=== PATIENT | female | born 1935 | race Caucasian/White ===

== ENCOUNTER 2016-10-07 09:35 | Inpatient (IN) | payer OTHER, MEDICARE ==
[~2016-10-07] VITALS: Ht 149.9 cm; Wt 77.1 kg
[~2016-10-07 09:35] MED LIST: CALTTAB PO; HYDR12.57 PO
[2016-10-20] MEDS ORDERED: PLAV75TA29 PO (09:41)
[2016-10-20] MEDS ORDERED: FERR325T PO (09:45)
[2016-10-20] MEDS ORDERED: MULTTAB67 PO (09:45)
[2016-10-20] MEDS ORDERED: VITA10002 PO (09:45)
[2016-10-21] MEDS ORDERED: LACTATED RINGER'S 1000 ML INJ 1,000 ML ONE (09:11)
[2016-10-21] MEDS ORDERED: ceFAZolin 2 GM PREMIX 50 ML IV SCH (09:15)
[2016-10-21] MEDS ORDERED: VANCOMYCIN 1000 MG/NS 250 ML (for <70 kg) IV SCH ×2 (09:15)
[2016-10-21] MEDS ORDERED: LACTATED RINGER'S 1000 ML IV SCH (09:30)
[2016-10-21] MEDS ORDERED: INSULIN HUMAN REGULAR 1,000 UNITS/10 ML VIAL SQ PRN (09:30)
[2016-10-21] MEDS ORDERED: SODIUM CHLORID 0.9% 500 ML IV SCH (09:30)
[2016-10-21] MEDS ORDERED: POVIDONE IODINE 5% (ANTISEPSIS KIT) 4 APPLICATIONS EACH NARE SCH (09:30)
[2016-10-21] MEDS ORDERED: CHLORHEXIDINE GLUCONATE 2 % 1 PACK (2 CLOTHS) TOP SCH (09:30)
[2016-10-21] MEDS ORDERED: METOPROLOL TARTRATE 25 MG TAB PO PRN (09:30)
[2016-10-21] MEDS ORDERED: ASPI1TAB69 PO (09:47)
[2016-10-21] MEDS ORDERED: IRON18TA2 PO (09:47)
[2016-10-21 09:50] VITALS: BP 157/56; PULSE 75; RESP 18; TEMP 98.4; O2SAT 97
[2016-10-21] MEDS ORDERED: SODIUM CHLOR 0.9% 250 ML INJ 250 ML ONE (10:04)
[2016-10-21] MEDS: CHLORHEXIDINE GLUCONATE 4% SOLN 120 ML BTL TOP SCH (10:19)
[2016-10-21] MEDS ORDERED: GENTAMICIN SULFATE 80 MG/2 ML VIAL ONE (11:00)
[2016-10-21] MEDS ORDERED: MIDAZOLAM HCL 2 MG/2 ML VIAL ONE (11:07)
[2016-10-21] MEDS ORDERED: FAMOTIDINE 20 MG/2 ML VIAL ONE (11:07)
[2016-10-21] MEDS ORDERED: fentaNYL CITRATE 250 MCG/5 ML AMP ONE (11:20)
[2016-10-21] MEDS ORDERED: ONDANSETRON HCL 4 MG/2 ML VIAL IV PUSH ONE (12:00)
[2016-10-21] MEDS ORDERED: ePHEDrine/NS 25 MG/5 ML SYR IV ONE (12:00)
[2016-10-21] MEDS ORDERED: PROPOFOL 200 MG/20 ML AMP IV ONE (12:00)
[2016-10-21] MEDS ORDERED: NEOSTIGMINE 3 MG/3 ML SYR IV ONE (12:00)
[2016-10-21] MEDS ORDERED: BEDSIDE COMMODE1 MI1 (13:15)
[2016-10-21] MEDS ORDERED: WALKER WHEELS/F1 MIS (13:15)
[2016-10-21] MEDS ORDERED: Post-op Orders (for Pharmacy) MISC XX ONE (13:15)
[2016-10-21] MEDS ORDERED: ZOLPIDEM TARTRATE 5 MG TAB PO PRN (13:15)
[2016-10-21] MEDS ORDERED: MORPHINE SULFATE 4 MG/ML INJ IM PRN (13:15)
[2016-10-21] MEDS ORDERED: ONDANSETRON HCL 4 MG/2 ML VIAL IVP PRN (13:15)
[2016-10-21] MEDS ORDERED: ACETAMINOPHEN/HYDROcodone 325 MG/5 MG TAB PO PRN (13:15)
[2016-10-21] MEDS ORDERED: ALUMINUM/MAGNESIUM/SIMETH 30 ML CUP PO PRN (13:15)
[2016-10-21] MEDS ORDERED: SODIUM CHLORIDE 0.9% FLUSH 5 ML FLUSH IVF PRN (13:15)
[2016-10-21] MEDS ORDERED: DO NOT ADM ANY ANTICOAGULANT DRUGS XX PRN (13:30)
[2016-10-21] MEDS: LACTATED RINGER'S 1000 ML INJ 1,000 ML IV SCH (14:00)
[2016-10-21] MEDS: ACETAMINOPHEN/HYDROcodone 325 MG/5 MG TAB PO PRN (14:42)
--- NOTE | 2016-10-21 15:20 | PD.CONS ---
[facility] By Dr. Pham Reason for Consult medical management Primary Care Physician Javed Baum MD Diagnoses: History of Present Illness This is an 81-year-old female past medical history hypertension, chronic kidney disease stage III, and aortic stenosis who presented with elective left hip arthroplasty secondary to uncontrolled pain failing conservative management. [facility] consulted for medical management. Patient was seen in the PACU with no complaints. Review of Systems Constitutional: DENIES: Diaphoretic episodes, Fatigue, Fever, Weight gain, Weight loss, Chills, Dizziness, Change in appetite, Night Sweats Endocrine: DENIES: Abnorml menstrual pattern, Heat/cold intolerance, Polydipsia , Polyuria, Polyphagia Eyes: DENIES: Blurred vision, Diplopia, Eye inflammation, Eye pain, Vision loss , Photosensitivity, Double Vision Ears, nose, mouth, throat: DENIES: Tinnitus, Hearing loss, Vertigo, Nasal discharge, Oral lesions, Throat pain, Hoarseness, Ear Pain, Running Nose, Epistaxis, Sinus Pain, Toothache, Odynophagia Respiratory: DENIES: Apneas, Cough, Snoring, Wheezing, Hemoptysis, Sputum production, Shortness of breath Cardiovascular: DENIES: Chest pain, Palpitations, Syncope, Dyspnea on Exertion , PND, Lower Extremity Edema, Orthopnea, Claudication Gastrointestinal: DENIES: Abdominal pain, Black stools, Bloody stools, Constipation, Diarrhea, Nausea, Vomiting, Difficulty Swallowing, Anorexia Genitourinary: DENIES: Abnormal vaginal bleeding, Dysmenorrhea, Dyspareunia, Sexual dysfunction, Urinary frequency, Urinary incontinence, Urgency, Hematuria , Dysuria, Nocturia, Vaginal discharge Musculoskeletal: DENIES: Joint pain, Muscle aches, Stiffness, Joint Swelling, Back pain, Neck pain Integumentary: DENIES: Abnormal pigmentation, Pruritus, Rash, Nail changes, Breast masses, Breast skin changes, Nipple discharge Hematologic/lymphatic: DENIES: Bruising, Lymphadenopathy Immunologic/allergic: DENIES: Eczema, Urticaria Neurologic: DENIES: Abnormal gait, Headache, Localized weakness, Paresthesias, Seizures, Speech Problems, Tremor, Poor Balance Psychiatric: DENIES: Anxiety, Confusion, Mood changes, Depression, Hallucinations, Agitation, Suicidal Ideation, Homicidal Ideation, Delusions Past Family Social History Allergies: Coded Allergies: No Known Allergies (Verified , 10/20/16) Past Medical History Hypertension Aortic stenosis Osteoarthritis of multiple joints Chronic kidney disease stage III Past Surgical History Ballooning of the aortic valve, left hip total arthroplasty Reported Medications Reported Meds & Active Scripts Active Reported Iron (Ferrous Fumarate) 18 Mg Tab 54 Mg PO DAILY Aspirin 81 Mg Tabdr 81 Mg PO DAILY Multiple Vitamin 1 Tab 1 Tab PO DAILY Vitamin B-12 (Cyanocobalamin) 1,000 Mcg Tab 5,000 Mcg PO EVERY OTHER DAY Vitamin B-12 (Cyanocobalamin) 1,000 Mcg Tab 1,000 Mcg PO EVERY OTHER DAY Plavix (Clopidogrel Bisulfate) 75 Mg Tab 75 Mg PO DAILY Hydrochlorothiazide 12.5 Mg Cap 12.5 Mg PO DAILY Caltrate 600+D (Calcium Carbonate-Cholecalciferol) 600-800 Mg-Unit Tab 1 Tab PO DAILY Active Ordered Medications Current Medications Lactated Ringer's (Lr 1000 ml Inj) 1,000 ml @ As Directed STK-MED ONCE .ROUTE Last administered on 10/21/16 09:40; Start 10/21/16 at 09:11; Stop 10/21/16 at 09:12; Status DC Chlorhexidine Gluconate 1 applic 1 applic ONCE TOP Last administered on 10:19; Start 10/21/16 at 09:15; Stop 10/24/16 at 09:14 Cefazolin Sodium/ Dextrose 50 ml @ 100 mls/hr LOCKER ATTENDANT IV Last administered on 10/21/16 11:45; Start 10/21/16 at 09:15; Stop 10/21/16 at 13:45; Status DC Vancomycin HCl 1000 mg/Sodium Chloride 250 ml @ 250 mls/hr LOCKER ATTENDANT IV Last administered on 10/21/16 10:19; Start 10/21/16 at 09:15; Stop 10/21/16 at 13:46 ; Status DC Lactated Ringer's 1,000 ml @ 30 mls/hr Q24H IV ; Start 10/21/16 at 09:30; Stop 10/21/16 at 13:46; Status DC Sodium Chloride (NS 500 ml Inj) 500 ml @ 30 mls/hr [id number] IV ; Start 10/21/16 at 09:30; Stop 10/21/16 at 13:46; Status DC Insulin Human Regular (NovoLIN R INJ) See Protocol Table ... UNSCH X1 PRN SQ SEE PROTOCOL; Start 10/21/16 at 09:30; Stop 10/21/16 at 13:46; Status DC Metoprolol Tartrate (Lopressor) 25 mg UNSCH X1 PRN PO SEE LABEL COMMENTS; Start 10/21/16 at 09:30; Stop 10/21/16 at 13:46; Status DC Povidone Iodine (Betadine 5% Antisepsis Kit) 2 applic LOCKER ATTENDANT EACH NARE Last administered on 10/21/16 10:19; Start 10/21/16 at 09:30; Stop 10/21/16 at 13:46 ; Status DC Chlorhexidine Gluconate 3 pack 3 pack LOCKER ATTENDANT TOP ; Start 10/21/16 at 09:30; Stop 10/21/16 at 13:46; Status DC Sodium Chloride (NS 250 ml Inj) 250 ml @ As Directed STK-MED ONCE .ROUTE ; Start 10/21/16 at 10:04; Stop 10/21/16 at 10:05; Status DC Gentamicin Sulfate (Gentamicin Inj) 240 mg STK-MED ONCE .ROUTE Last administered on 10/21/16 12:10; Start 10/21/16 at 11:00; Stop 10/21/16 at 11:01 ; Status DC Midazolam HCl (Versed Inj) 2 mg STK-MED ONCE .ROUTE Last administered on 11:09; Start 10/21/16 at 11:07; Stop 10/21/16 at 11:08; Status DC Famotidine (Pepcid Inj) 20 mg STK-MED ONCE .ROUTE Last administered on 11:06; Start 10/21/16 at 11:07; Stop 10/21/16 at 11:08; Status DC Fentanyl Citrate (fentaNYL INJ) 250 mcg STK-MED ONCE .ROUTE ; Start 10/21/16 at 11:20; Stop 10/21/16 at 11:21; Status DC Hydrochlorothiazide (Microzide) 12.5 mg DAILY PO ; Start 10/22/16 at 09:00 Patient Own Medication PT OWN MED: FERR... DAILY PO ; Start 10/22/16 at 09:00; Status Future Hold Lactated Ringer's (Lr 1000 ml Inj) 1,000 ml @ 80 mls/hr [id number] IV Last administered on 3/23/17at 14:00; Start 10/21/16 at 13:07 IV Flush (NS Flush) 2 ml UNSCH PRN IVF FLUSH AFTER USING IV ACCESS; Start 10/21 at 13:15 IV Flush 2 ml 2 ml BID IVF ; Start 10/21/16 at 21:00 Cefazolin Sodium/ Sodium Chloride (Ancef Inj/NS Inj) 100 ml @ 200 mls/hr Q6H IV ; Start 10/21/16 at 16:00; Stop 10/22/16 at 04:29 Miscellaneous Information (Post-op Orders (for Pharmacy)) STAT ONCE XX ; Start 10/21/16 at 13:15; Stop 10/21/16 at 13:23; Status DC Warfarin Sodium (Coumadin) Follow Sliding Scale... DAILY@1600 PO ; Start at 16:00 Patient Medication Teaching (Coumadin Booklet) 1 ONCE ONCE XX ; Start 10/21/16 at 16:00; Stop 10/21/16 at 16:01 Morphine Sulfate (Morphine Inj) 3 mg Q3H PRN IM Pain >7 when off MANAGER FINANCIAL; Start at 13:15 Acetaminophen/ Hydrocodone Bitart ([place] 5-325 Mg) 1 tab Q4H PRN PO PAIN LESS THAN 5 ON SCALE Last administered on 10/21/16t 14:42; Start 10/21/16 at 13:15 Acetaminophen/ Hydrocodone Bitart ([place] 5-325 Mg) 2 tab Q4H PRN PO PAIN SCALE 5 TO 10; Start 10/21/16 at 13:15 Ondansetron HCl (Zofran Inj) 4 mg Q6H PRN IVP NAUSEA OR VOMITING; Start at 13:15 Docusate Sodium (Colace) 100 mg BID PO ; Start 10/22/16 at 21:00 Al Hydrox/Mg Hydrox/Simethicone (Mag-Al Plus Susp Liq) 30 ml Q6H PRN PO INDIGESTION; Start 10/21/16 at 13:15 Zolpidem Tartrate (Ambien) 5 mg HS PRN PO SLEEP; Start 10/21/16 at 13:15 Miscellaneous Information ALL NURSING DEPARTME... UNSCH PRN XX SEE LABEL COMMENTS; Start 10/21/16 at 13:30; Stop 10/22/16 at 13:29 Family History Noncontributory Social History Patient lives at home. Deny tobacco or illicit drug use. Drinks alcohol occasionally about every 3 months. Physical Exam Vital Signs Vital Signs Date Time Temp Pulse Resp B/P Pulse Ox O2 Delivery O2 Flow Rate FiO2 10/21/16 13:25 97.8 59 18 150/43 100 Nasal Cannula 3 10/21/16 09:50 98.4 75 18 157/56 97 Physical Exam GENERAL: This is a well-nourished, well-developed patient, in no apparent distress. SKIN: No rashes, ecchymoses or lesions. Cool and dry. HEAD: Atraumatic. Normocephalic. No temporal or scalp tenderness. EYES: Pupils equal round and reactive. Extraocular motions intact. No scleral icterus. No injection or drainage. ENT: Nose without bleeding, purulent drainage or septal hematoma. Throat without erythema, tonsillar hypertrophy or exudate. Uvula midline. Airway patent. NECK: Trachea midline. No JVD or lymphadenopathy. Supple, nontender, no meningeal signs. CARDIOVASCULAR: Regular rate and rhythm without murmurs, gallops, or rubs. RESPIRATORY: Clear to auscultation. Breath sounds equal bilaterally. No wheezes , rales, or rhonchi. GASTROINTESTINAL: Abdomen soft, non-tender, nondistended. No hepato-splenomegaly , or palpable masses. No guarding. MUSCULOSKELETAL: Right hip limited range of motion. Negative Homans sign bilaterally. NEUROLOGICAL: Awake and alert. Cranial nerves II through XII intact. Motor and sensory grossly within normal limits. Five out of 5 muscle strength in all muscle groups. Normal speech. Laboratory Laboratory Tests Test 10/21/16 09:40 Blood Type O NEGATIVE Antibody Screen NEGATIVE Crossmatch Leukocyte-Reduced Red Blood Cells Blood Bank Comment Assessment and Plan Assessment and Plan 81-year-old with Severe osteoarthritis of the right hip -Failed conservative management. -s/p right total hip arthroplasty on 10/21/16. -Being managed by orthopedics. Hypertension/Aortic stenosis/chronic kidney disease stage III -Home medication already resumed. -Avoid nephrotoxins. DVT prophylaxis -On Coumadin per primary team. Code Status full Discussed Condition With patient and PACU nurse Kala Murrieta MD Oct 21, 2016 15:20
[2016-10-21 15:30] VITALS: BP 143/60; PULSE 50; RESP 16; TEMP 95.9; O2SAT 96
--- NOTE | 2016-10-21 16:13 | RADRPT ---
EXAM DATE/TIME: 10/21/2016 13:25 [place] COMPARISON: No previous studies available for comparison. INDICATIONS : Post right hip arthroplasty MEDICAL HISTORY : Arthritis. SURGICAL HISTORY : Total knee replacement, left. ENCOUNTER: Initial ACUITY: 1 day PAIN SCORE: Non-responsive. LOCATION: Right hip FINDINGS: The patient is status post right hip arthroplasty with prosthesis in good position. Old left hip art hroplasty is also noted. CONCLUSION: Status post right hip arthroplasty with prosthesis in good position. Tom Ocampo MD on October 21, 2016 at 16:10 Board Certified Radiologist. This report was verified electronically.
[2016-10-21] MEDS: SODIUM CHLORIDE 0.9% FLUSH 5 ML FLUSH IVF SCH (20:10)
[2016-10-21 20:50] VITALS: BP 151/54; PULSE 69; RESP 16; TEMP 96; O2SAT 98
[2016-10-22] VITALS (8 sets, daily range): BP systolic 131–161; BP diastolic 42–67; PULSE 83–89; RESP 16–17; TEMP 98–99.9; O2SAT 95–98
[2016-10-22] MEDS: LACTATED RINGER'S 1000 ML INJ 1,000 ML IV SCH ×2 (04:44→12:46)
[2016-10-22 06:02] LABS: HEMATOCRIT 23.9 % (35.0-46.0); REVIEW FLAG FINAL
[2016-10-22 06:10] LABS: INTERNATIONAL NORMALIZED RATIO 1.9 RATIO; PROTHROMBIN TIME - PATIENT 21.2 SEC (9.8-11.6)
--- NOTE | 2016-10-22 07:02 | PD.ORT.PN ---
Subjective Subjective Remarks pt doing well, has no pain, has not needed any pain meds thus far Objective Vitals Vital Signs Date Time Temp Pulse Resp B/P Pulse Ox O2 Delivery O2 Flow Rate FiO2 10/22/16 04:45 98.2 83 16 143/53 97 10/22/16 00:50 98.0 85 16 146/49 97 10/21/16 21:00 98 Room Air 10/21/16 20:50 96.0 69 16 151/54 98 10/21/16 15:30 95.9 50 16 143/60 96 10/21/16 14:55 96.9 52 16 142/55 95 Room Air 10/21/16 14:45 51 16 144/51 100 Nasal Cannula 2 10/21/16 14:30 49 15 143/50 99 Nasal Cannula 2 10/21/16 14:15 48 15 150/51 98 Nasal Cannula 2 10/21/16 14:00 46 15 147/50 97 Nasal Cannula 2 10/21/16 13:45 47 15 145/52 96 Nasal Cannula 2 10/21/16 13:30 50 15 148/45 96 Nasal Cannula 2 10/21/16 13:25 97.8 59 18 150/43 100 Nasal Cannula 3 10/21/16 09:50 98.4 75 18 157/56 97 I/O 10/21/16 10/21/16 10/21/16 10/22/16 10/22/16 10/22/16 07:00 15:00 23:00 07:00 15:00 23:00 Intake Total 650 ml 826 ml 120 ml Output Total 100 ml Balance 550 ml 826 ml 120 ml Intake Oral 120 ml IV Total 100 ml 826 ml Other 550 ml Output Estimated Blood Loss 100 ml # Voids 0 1 Result Diagram: 10/22/16 0510 Other Results Laboratory Tests Test 10/22/16 05:10 Prothrombin Time 21.2 SEC (9.8-11.6) Prothromb Time International 1.9 RATIO Ratio Objective Remarks also seen by Dr. Yan Lopez right hip dressing dry and intact no calf tenderness +NVI Assessment & Plan Assessment and Plan POD # 1 s/p R MICHELET low dose coumadin for DVT prop- hold today per protocol since INR 1.9 PT-WBAT hgb 8.3 today, recheck CBC tomorrow, on iron anticipate d/c to [facility] Tuesday, 3007 filled out coumadin 1 mg daily upon discharge Akua Stanton Oct 22, 2016 07:02
[2016-10-22] MEDS: HYDROCHLOROTHIAZIDE 12.5 MG CAP PO SCH (09:00)
[2016-10-22] MEDS ORDERED: FERROUS FUMARATE PO SCH (09:00)
[2016-10-22] MEDS: CHLORHEXIDINE GLUCONATE 4% SOLN 120 ML BTL TOP SCH (09:15)
[2016-10-22] MEDS: ACETAMINOPHEN/HYDROcodone 325 MG/5 MG TAB PO PRN ×2 (09:36→12:48)
[2016-10-22] MEDS: SODIUM CHLORIDE 0.9% FLUSH 5 ML FLUSH IVF SCH ×2 (09:37→20:24)
[2016-10-22] MEDS ORDERED: WARFARIN SOD 5 MG TAB PO ONE (13:00)
--- NOTE | 2016-10-22 15:47 | HHI.PR ---
Subjective Remarks pain - controlled looking forward to going to rehab and ore therapy voiding spontaneously history of HTN.- ff by Dr. Dickens on Plavix- held prior to surgery and while on coumadin- to be resume after coumadin course Objective Vitals Vital Signs Date Time Temp Pulse Resp B/P Pulse Ox O2 Delivery O2 Flow Rate FiO2 10/22/16 12:14 98.9 89 16 139/67 96 10/22/16 09:43 97 21 10/22/16 08:00 99.5 86 17 147/57 97 10/22/16 04:45 98.2 83 16 143/53 97 10/22/16 00:50 98.0 85 16 146/49 97 10/21/16 21:00 98 Room Air 10/21/16 20:50 96.0 69 16 151/54 98 I/O 10/21/16 10/21/16 10/21/16 10/22/16 10/22/16 10/22/16 07:00 15:00 23:00 07:00 15:00 23:00 Intake Total 650 ml 826 ml 798 ml 154 ml Output Total 100 ml Balance 550 ml 826 ml 798 ml 154 ml Intake Oral 120 ml IV Total 100 ml 826 ml 678 ml 154 ml Other 550 ml Output Estimated Blood Loss 100 ml # Voids 0 1 1 Result Diagram: 10/22/16 0510 Imaging Last Impressions Hip and Pelvis X-Ray 10/21/16 0000 Signed Impressions: Service Date/Time: September 13:25 - CONCLUSION: Status post right hip arthroplasty with prosthesis in good position. Tom Ocampo MD Objective Remarks awake and alert lungs clear regular rhythm, soft / systolic murmur left sternal border abdomen soft, good bowel sounds right hip- post op dressing in place no calf tenderness, good peripheral pulses Procedures 10/20- right total hip arthroplasty A/P Assessment and Plan 81-year-old with Severe osteoarthritis of the right hip -s/p right total hip arthroplasty on 10/21/16. -Being managed by orthopedics. Hypertension/Aortic stenosis/chronic kidney disease stage III -ff up with Dr. Dickens as OP for - Plavix on hold while on coumadin -continue on her HCTZ 12.5 mg po daily DVT prophylaxis -On Coumadin per primary team. SNF this weekend per primary team PCP= Ag Hernandez MD Oct 22, 2016 15:47
[2016-10-22] MEDS ORDERED: WARFARIN SOD 5 MG TAB PO SCH (16:00)
[2016-10-22] MEDS: DOCUSATE SODIUM 100 MG CAP PO SCH (20:24)
[2016-10-23] MEDS: LACTATED RINGER'S 1000 ML INJ 1,000 ML IV SCH ×2 (02:37→15:07)
[2016-10-23 04:59] LABS: MEAN CELL VOLUME 94.9 FL (80.0-100.0); MEAN CORPUSCULAR HEMOGLOBIN 33.7 PG (27.0-34.0); MEAN CORPUSCULAR HGB CONC 35.5 % (32.0-36.0); PLATELET COUNT 153 TH/MM3 (150-450); RED BLOOD COUNT 2.07 MIL/MM3 (4.00-5.30); RED CELL DISTRIBUTION WIDTH 13.6 % (11.6-17.2); WHITE BLOOD COUNT 9.9 TH/MM3 (4.0-11.0)
[2016-10-23 05:08] LABS: INTERNATIONAL NORMALIZED RATIO 1.8 RATIO; PROTHROMBIN TIME - PATIENT 20.8 SEC (9.8-11.6); REVIEW FLAG FINAL
[2016-10-23 05:12] LABS: HEMATOCRIT 19.7 % (35.0-46.0)
--- NOTE | 2016-10-23 07:14 | PD.ORT.PN ---
Subjective Subjective Remarks POD 2 s/p right MICHELET doing well. out of bed with assistance and walking to bathroom and back. pain controlled Objective Vitals Vital Signs Date Time Temp Pulse Resp B/P Pulse Ox O2 Delivery O2 Flow Rate FiO2 10/22/16 23:45 99.7 89 17 132/60 95 10/22/16 20:40 99.9 88 17 161/49 98 10/22/16 20:00 98 Room Air 10/22/16 16:00 98.7 89 17 131/42 96 10/22/16 12:14 98.9 89 16 139/67 96 10/22/16 09:43 97 21 10/22/16 08:00 99.5 86 17 147/57 97 I/O 10/22/16 10/22/16 10/22/16 10/23/16 10/23/16 10/23/16 07:00 15:00 23:00 07:00 15:00 23:00 Intake Total 798 ml 874 ml 240 ml 120 ml Balance 798 ml 874 ml 240 ml 120 ml Intake Oral 120 ml 720 ml 240 ml 120 ml IV Total 678 ml 154 ml # Voids 1 3 2 2 # Bowel Movements 0 0 Result Diagram: 10/23/16 0414 Other Results Laboratory Tests Test 10/23/16 04:14 Prothrombin Time 20.8 SEC (9.8-11.6) Prothromb Time International 1.8 RATIO Ratio Objective Remarks right hip dressing dry and intact no calf tenderness +NVI Assessment & Plan Assessment and Plan POD # 2 s/p R MICHELET low dose coumadin for DVT prophylaxis PT-WBAT anticipate d/c to [facility] 3007 filled out coumadin 1 mg daily upon discharge f/u with Dr Heredia in 2 weeks Leo Kaiser Oct 23, 2016 07:14
[2016-10-23 08:00] VITALS: BP 134/46; PULSE 82; RESP 18; TEMP 98.9; O2SAT 95
[2016-10-23] MEDS: CHLORHEXIDINE GLUCONATE 4% SOLN 120 ML BTL TOP SCH (09:15)
[2016-10-23] MEDS: HYDROCHLOROTHIAZIDE 12.5 MG CAP PO SCH (09:16)
[2016-10-23] MEDS: DOCUSATE SODIUM 100 MG CAP PO SCH (09:16)
[2016-10-23] MEDS: ACETAMINOPHEN/HYDROcodone 325 MG/5 MG TAB PO PRN ×2 (09:17→18:10)
[2016-10-23] MEDS: SODIUM CHLORIDE 0.9% FLUSH 5 ML FLUSH IVF SCH (09:18)
--- NOTE | 2016-10-23 09:50 | HHI.PR ---
Subjective Remarks f/u; post-op care resting comfortably with no distress. pain is controlled. no chest pain, sob or dizziness. d/w the RN. Objective Vitals Vital Signs Date Time Temp Pulse Resp B/P Pulse Ox O2 Delivery O2 Flow Rate FiO2 10/23/16 08:00 98.9 82 18 134/46 95 10/22/16 23:45 99.7 89 17 132/60 95 10/22/16 20:40 99.9 88 17 161/49 98 10/22/16 20:00 98 Room Air 10/22/16 16:00 98.7 89 17 131/42 96 10/22/16 12:14 98.9 89 16 139/67 96 I/O 10/22/16 10/22/16 10/22/16 10/23/16 10/23/16 10/23/16 07:00 15:00 23:00 07:00 15:00 23:00 Intake Total 798 ml 874 ml 240 ml 120 ml Balance 798 ml 874 ml 240 ml 120 ml Intake Oral 120 ml 720 ml 240 ml 120 ml IV Total 678 ml 154 ml # Voids 1 3 2 2 # Bowel Movements 0 0 Result Diagram: 10/23/16 0414 Imaging Last Impressions Hip and Pelvis X-Ray 10/21/16 0000 Signed Impressions: Service Date/Time: September 13:25 - CONCLUSION: Status post right hip arthroplasty with prosthesis in good position. Tom Ocampo MD Objective Remarks GENERAL: This is a well-nourished, well-developed patient, in no apparent distress. CARDIOVASCULAR: Regular rate and regular rhythm without murmurs, gallops, or rubs. RESPIRATORY: Clear to auscultation. Breath sounds equal bilaterally. No wheezes , rales, or rhonchi. GASTROINTESTINAL: Abdomen soft, non-tender, nondistended. Normal, active bowel sounds MUSCULOSKELETAL: Extremities without clubbing, cyanosis, or edema. NEURO: Alert & Oriented x4 to person, place, time, situation. Moves all ext x4 Procedures 10/20- right total hip arthroplasty Medications and IVs Current Medications Lactated Ringer's (Lr 1000 ml Inj) 1,000 ml @ As Directed STK-MED ONCE .ROUTE Last administered on 10/21/16t 09:40; Start 10/21/16 at 09:11; Stop 10/21/16 at 09:12; Status DC Chlorhexidine Gluconate 1 applic 1 applic ONCE TOP Last administered on 10:19; Start 10/21/16 at 09:15; Stop 10/24/16 at 09:14 Cefazolin Sodium/ Dextrose 50 ml @ 100 mls/hr CLINICAL REHAB LIAISON IV Last administered on 10/21/16 11:45; Start 10/21/16 at 09:15; Stop 10/21/16 at 13:45; Status DC Vancomycin HCl 1000 mg/Sodium Chloride 250 ml @ 250 mls/hr CLINICAL REHAB LIAISON IV Last administered on 10/21/16 10:19; Start 10/21/16 at 09:15; Stop 10/21/16 at 13:46 ; Status DC Lactated Ringer's 1,000 ml @ 30 mls/hr Q24H IV ; Start 10/21/16 at 09:30; Stop 10/21/16 at 13:46; Status DC Sodium Chloride (NS 500 ml Inj) 500 ml @ 30 mls/hr [id number] IV ; Start 10/21/16 at 09:30; Stop 10/21/16 at 13:46; Status DC Insulin Human Regular (NovoLIN R INJ) See Protocol Table ... UNSCH X1 PRN SQ SEE PROTOCOL; Start 10/21/16 at 09:30; Stop 10/21/16 at 13:46; Status DC Metoprolol Tartrate (Lopressor) 25 mg UNSCH X1 PRN PO SEE LABEL COMMENTS; Start 10/21/16 at 09:30; Stop 10/21/16 at 13:46; Status DC Povidone Iodine (Betadine 5% Antisepsis Kit) 2 applic CLINICAL REHAB LIAISON EACH NARE Last administered on 10/21/16 10:19; Start 10/21/16 at 09:30; Stop 10/21/16 at 13:46 ; Status DC Chlorhexidine Gluconate 3 pack 3 pack CLINICAL REHAB LIAISON TOP ; Start 10/21/16 at 09:30; Stop 10/21/16 at 13:46; Status DC Sodium Chloride (NS 250 ml Inj) 250 ml @ As Directed STK-MED ONCE .ROUTE ; Start 10/21/16 at 10:04; Stop 10/21/16 at 10:05; Status DC Gentamicin Sulfate (Gentamicin Inj) 240 mg STK-MED ONCE .ROUTE Last administered on 10/21/16 12:10; Start 10/21/16 at 11:00; Stop 10/21/16 at 11:01 ; Status DC Midazolam HCl (Versed Inj) 2 mg STK-MED ONCE .ROUTE Last administered on 11:09; Start 10/21/16 at 11:07; Stop 10/21/16 at 11:08; Status DC Famotidine (Pepcid Inj) 20 mg STK-MED ONCE .ROUTE Last administered on 11:06; Start 10/21/16 at 11:07; Stop 10/21/16 at 11:08; Status DC Fentanyl Citrate (fentaNYL INJ) 250 mcg STK-MED ONCE .ROUTE ; Start 10/21/16 at 11:20; Stop 10/21/16 at 11:21; Status DC Hydrochlorothiazide (Microzide) 12.5 mg DAILY PO Last administered on 09:16; Start 10/22/16 at 09:00 Patient Own Medication PT OWN MED: FERR... DAILY PO ; Start 10/22/16 at 09:00; Status Hold Lactated Ringer's (Lr 1000 ml Inj) 1,000 ml @ 80 mls/hr [id number] IV Last administered on 10/22/16 04:44; Start 10/21/16 at 13:07 IV Flush (NS Flush) 2 ml UNSCH PRN IVF FLUSH AFTER USING IV ACCESS; Start 10/21 at 13:15 IV Flush 2 ml 2 ml BID IVF Last administered on 10/23/16 09:18; Start at 21:00 Cefazolin Sodium/ Sodium Chloride (Ancef Inj/NS Inj) 100 ml @ 200 mls/hr Q6H IV Last administered on 10/22/16 04:44; Start 10/21/16 at 16:00; Stop at 04:29; Status DC Miscellaneous Information (Post-op Orders (for Pharmacy)) STAT ONCE XX ; Start 10/21/16 at 13:15; Stop 10/21/16 at 13:23; Status DC Warfarin Sodium (Coumadin) Follow Sliding Scale... DAILY@1600 PO ; Start at 16:00; Stop 10/22/16 at 16:00; Status DC Patient Medication Teaching (Coumadin Booklet) 1 ONCE ONCE XX Last administered on 10/21/16 16:56; Start 10/21/16 at 16:00; Stop 10/21/16 at 16:01 ; Status DC Morphine Sulfate (Morphine Inj) 3 mg Q3H PRN IM Pain >7 when off DIRECTOR E LEARNING; Start at 13:15 Acetaminophen/ Hydrocodone Bitart ([place] 5-325 Mg) 1 tab Q4H PRN PO PAIN LESS THAN 5 ON SCALE Last administered on 10/23/16 09:17; Start 10/21/16 at 13:15 Acetaminophen/ Hydrocodone Bitart ([place] 5-325 Mg) 2 tab Q4H PRN PO PAIN SCALE 5 TO 10 Last administered on 10/22/16 20:26; Start 10/21/16 at 13:15 Ondansetron HCl (Zofran Inj) 4 mg Q6H PRN IVP NAUSEA OR VOMITING; Start at 13:15 Docusate Sodium (Colace) 100 mg BID PO Last administered on 10/23/16 09:16; Start 10/22/16 at 21:00 Al Hydrox/Mg Hydrox/Simethicone (Mag-Al Plus Susp Liq) 30 ml Q6H PRN PO INDIGESTION; Start 10/21/16 at 13:15 Zolpidem Tartrate (Ambien) 5 mg HS PRN PO SLEEP; Start 10/21/16 at 13:15 Miscellaneous Information ALL NURSING DEPARTME... UNSCH PRN XX SEE LABEL COMMENTS; Start 10/21/16 at 13:30; Stop 10/22/16 at 13:29; Status DC Warfarin Sodium (Coumadin) Follow Sliding Scale... ONCE ONCE PO ; Start at 13:00; Stop 10/22/16 at 13:01; Status DC Warfarin Sodium (Coumadin) Follow Sliding Scale... DAILY@1600 PO ; Start at 16:00 A/P Assessment and Plan A/P Severe osteoarthritis of the right hip -s/p right total hip arthroplasty on 10/21/16. -Being managed by orthopedics. Anemia- post-op; will repeat H/H today and transfuse as needed. Hypertension/Aortic stenosis/chronic kidney disease stage III -ff up with Dr. Chaney as OP for - Plavix on hold while on coumadin -continue on her HCTZ 12.5 mg po daily DVT prophylaxis -On Coumadin per primary team. Sakina Bentley MD Oct 23, 2016 09:50
[2016-10-23 12:00] VITALS: BP 147/60; PULSE 78; RESP 18; TEMP 99.3; O2SAT 98
[2016-10-23] MEDS ORDERED: MAGNESIUM HYDROXIDE SUSP 30 ML CUP PO PRN (12:00)
[2016-10-23] MEDS ORDERED: BISACODYL 10 MG SUPP RECTAL PRN (12:00)
[2016-10-23 16:00] VITALS: BP 133/45; PULSE 82; RESP 18; TEMP 100.5; O2SAT 97
[2016-10-23] MEDS ORDERED: WARFARIN SOD 5 MG TAB PO SCH (16:00)
[2016-10-23 16:18] LABS: HEMATOCRIT 20.5 % (35.0-46.0)
[2016-10-23 20:31] VITALS: BP 126/42; PULSE 83; RESP 16; TEMP 99.9; O2SAT 98
[2016-10-24 00:04] VITALS: BP 143/48; PULSE 88; RESP 18; TEMP 98.8; O2SAT 96
[2016-10-24] MEDS: ACETAMINOPHEN/HYDROcodone 325 MG/5 MG TAB PO PRN ×3 (00:26→12:02)
[2016-10-24] MEDS: SODIUM CHLORIDE 0.9% FLUSH 5 ML FLUSH IVF SCH ×2 (00:27→09:25)
[2016-10-24] MEDS: DOCUSATE SODIUM 100 MG CAP PO SCH ×2 (00:27→09:25)
[2016-10-24] MEDS: LACTATED RINGER'S 1000 ML INJ 1,000 ML IV SCH (03:37)
[2016-10-24 05:23] VITALS: BP 133/48; PULSE 82; RESP 18; TEMP 99.1; O2SAT 96
[2016-10-24 05:51] LABS: INTERNATIONAL NORMALIZED RATIO 1.3 RATIO; PROTHROMBIN TIME - PATIENT 14.2 SEC (9.8-11.6)
[2016-10-24 05:56] LABS: HEMATOCRIT 19.7 % (35.0-46.0)
--- NOTE | 2016-10-24 06:48 | PD.ORT.PN ---
Subjective Subjective Remarks POD 3 s/p right MICHELET doing well. out of bed with assistance and walking to bathroom and back. pain controlled. has not had BM yet. received suppository this AM Objective Vitals Vital Signs Date Time Temp Pulse Resp B/P Pulse Ox O2 Delivery O2 Flow Rate FiO2 10/24/16 05:23 99.1 82 18 133/48 96 10/24/16 00:04 98.8 88 18 143/48 96 10/23/16 20:31 99.9 83 16 126/42 98 10/23/16 16:00 100.5 82 18 133/45 97 10/23/16 12:00 99.3 78 18 147/60 98 10/23/16 08:00 98.9 82 18 134/46 95 I/O 10/23/16 10/23/16 10/23/16 10/24/16 10/24/16 10/24/16 07:00 15:00 23:00 07:00 15:00 23:00 Intake Total 120 ml 720 ml Balance 120 ml 720 ml Intake Oral 120 ml 720 ml # Voids 2 3 1 # Bowel Movements 0 0 0 Result Diagram: 10/24/16 0505 Other Results Laboratory Tests Test 10/24/16 05:05 Prothrombin Time 14.2 SEC (9.8-11.6) Prothromb Time International 1.3 RATIO Ratio Objective Remarks right hip dressing dry and intact no calf tenderness +NVI Assessment & Plan Assessment and Plan POD # 3 s/p R MICHELET low dose coumadin for DVT prophylaxis PT-WBAT anticipate d/c to [facility] Tuesday, 3007 filled out coumadin 1 mg daily upon discharge f/u with Dr Heredia in 2 weeks -will be discharged when have BM Leo Kaiser Oct 24, 2016 06:47
[2016-10-24 08:00] VITALS: BP 131/50; PULSE 76; RESP 18; TEMP 99.1; O2SAT 95
[2016-10-24] MEDS: HYDROCHLOROTHIAZIDE 12.5 MG CAP PO SCH (09:25)
--- NOTE | 2016-10-24 11:03 | HHI.PR ---
Subjective Remarks resting comfortably with no distress. denies chest pain, sob or dizziness. d/w the RN and no acute issues over night. Objective Vitals Vital Signs Date Time Temp Pulse Resp B/P Pulse Ox O2 Delivery O2 Flow Rate FiO2 10/24/16 08:00 99.1 76 18 131/50 95 10/24/16 05:23 99.1 82 18 133/48 96 10/24/16 00:04 98.8 88 18 143/48 96 10/23/16 20:31 99.9 83 16 126/42 98 10/23/16 16:00 100.5 82 18 133/45 97 10/23/16 12:00 99.3 78 18 147/60 98 I/O 10/23/16 10/23/16 10/23/16 10/24/16 10/24/16 10/24/16 07:00 15:00 23:00 07:00 15:00 23:00 Intake Total 120 ml 720 ml Balance 120 ml 720 ml Intake Oral 120 ml 720 ml # Voids 2 3 1 # Bowel Movements 0 0 0 Result Diagram: 10/24/16 0505 Imaging Last Impressions Hip and Pelvis X-Ray 10/21/16 0000 Signed Impressions: Service Date/Time: September 13:25 - CONCLUSION: Status post right hip arthroplasty with prosthesis in good position. Tom Ocampo MD Objective Remarks GENERAL: This is a well-nourished, well-developed patient, in no apparent distress. CARDIOVASCULAR: Regular rate and regular rhythm without murmurs, gallops, or rubs. RESPIRATORY: Clear to auscultation. Breath sounds equal bilaterally. No wheezes , rales, or rhonchi. GASTROINTESTINAL: Abdomen soft, non-tender, nondistended. Normal, active bowel sounds MUSCULOSKELETAL: Extremities without clubbing, cyanosis, or edema. NEURO: Alert & Oriented x4 to person, place, time, situation. Moves all ext x4 Procedures 10/20- right total hip arthroplasty Medications and IVs Current Medications Lactated Ringer's (Lr 1000 ml Inj) 1,000 ml @ As Directed STK-MED ONCE .ROUTE Last administered on 10/21/16t 09:40; Start 10/21/16 at 09:11; Stop 10/21/16 at 09:12; Status DC Chlorhexidine Gluconate 1 applic 1 applic ONCE TOP Last administered on 10:19; Start 10/21/16 at 09:15; Stop 10/24/16 at 09:14; Status DC Cefazolin Sodium/ Dextrose 50 ml @ 100 mls/hr FARM CROPS TEACHER IV Last administered on 10/21/16 11:45; Start 10/21/16 at 09:15; Stop 10/21/16 at 13:45; Status DC Vancomycin HCl 1000 mg/Sodium Chloride 250 ml @ 250 mls/hr FARM CROPS TEACHER IV Last administered on 10/21/16 10:19; Start 10/21/16 at 09:15; Stop 10/21/16 at 13:46 ; Status DC Lactated Ringer's 1,000 ml @ 30 mls/hr Q24H IV ; Start 10/21/16 at 09:30; Stop 10/21/16 at 13:46; Status DC Sodium Chloride (NS 500 ml Inj) 500 ml @ 30 mls/hr [id number] IV ; Start 10/21/16 at 09:30; Stop 10/21/16 at 13:46; Status DC Insulin Human Regular (NovoLIN R INJ) See Protocol Table ... UNSCH X1 PRN SQ SEE PROTOCOL; Start 10/21/16 at 09:30; Stop 10/21/16 at 13:46; Status DC Metoprolol Tartrate (Lopressor) 25 mg UNSCH X1 PRN PO SEE LABEL COMMENTS; Start 10/21/16 at 09:30; Stop 10/21/16 at 13:46; Status DC Povidone Iodine (Betadine 5% Antisepsis Kit) 2 applic FARM CROPS TEACHER EACH NARE Last administered on 10/21/16 10:19; Start 10/21/16 at 09:30; Stop 10/21/16 at 13:46 ; Status DC Chlorhexidine Gluconate 3 pack 3 pack FARM CROPS TEACHER TOP ; Start 10/21/16 at 09:30; Stop 10/21/16 at 13:46; Status DC Sodium Chloride (NS 250 ml Inj) 250 ml @ As Directed STK-MED ONCE .ROUTE ; Start 10/21/16 at 10:04; Stop 10/21/16 at 10:05; Status DC Gentamicin Sulfate (Gentamicin Inj) 240 mg STK-MED ONCE .ROUTE Last administered on 10/21/16 12:10; Start 10/21/16 at 11:00; Stop 10/21/16 at 11:01 ; Status DC Midazolam HCl (Versed Inj) 2 mg STK-MED ONCE .ROUTE Last administered on 11:09; Start 10/21/16 at 11:07; Stop 10/21/16 at 11:08; Status DC Famotidine (Pepcid Inj) 20 mg STK-MED ONCE .ROUTE Last administered on 11:06; Start 10/21/16 at 11:07; Stop 10/21/16 at 11:08; Status DC Fentanyl Citrate (fentaNYL INJ) 250 mcg STK-MED ONCE .ROUTE ; Start 10/21/16 at 11:20; Stop 10/21/16 at 11:21; Status DC Hydrochlorothiazide (Microzide) 12.5 mg DAILY PO Last administered on 09:25; Start 10/22/16 at 09:00 Patient Own Medication PT OWN MED: FERR... DAILY PO ; Start 10/22/16 at 09:00; Status Hold Lactated Ringer's (Lr 1000 ml Inj) 1,000 ml @ 80 mls/hr [id number] IV Last administered on 10/22/16 04:44; Start 10/21/16 at 13:07 IV Flush (NS Flush) 2 ml UNSCH PRN IVF FLUSH AFTER USING IV ACCESS; Start 10/21 at 13:15 IV Flush 2 ml 2 ml BID IVF Last administered on 10/24/16 09:25; Start at 21:00 Cefazolin Sodium/ Sodium Chloride (Ancef Inj/NS Inj) 100 ml @ 200 mls/hr Q6H IV Last administered on 10/22/16 04:44; Start 10/21/16 at 16:00; Stop at 04:29; Status DC Miscellaneous Information (Post-op Orders (for Pharmacy)) STAT ONCE XX ; Start 10/21/16 at 13:15; Stop 10/21/16 at 13:23; Status DC Warfarin Sodium (Coumadin) Follow Sliding Scale... DAILY@1600 PO ; Start at 16:00; Stop 10/22/16 at 16:00; Status DC Patient Medication Teaching (Coumadin Booklet) 1 ONCE ONCE XX Last administered on 10/21/16 16:56; Start 10/21/16 at 16:00; Stop 10/21/16 at 16:01 ; Status DC Morphine Sulfate (Morphine Inj) 3 mg Q3H PRN IM Pain >7 when off TANK SYSTEMS MAINTAINER; Start at 13:15 Acetaminophen/ Hydrocodone Bitart ([place] 5-325 Mg) 1 tab Q4H PRN PO PAIN LESS THAN 5 ON SCALE Last administered on 10/24/16 04:51; Start 10/21/16 at 13:15 Acetaminophen/ Hydrocodone Bitart ([place] 5-325 Mg) 2 tab Q4H PRN PO PAIN SCALE 5 TO 10 Last administered on 10/22/16 20:26; Start 10/21/16 at 13:15 Ondansetron HCl (Zofran Inj) 4 mg Q6H PRN IVP NAUSEA OR VOMITING; Start at 13:15 Docusate Sodium (Colace) 100 mg BID PO Last administered on 10/24/16 09:25; Start 10/22/16 at 21:00 Al Hydrox/Mg Hydrox/Simethicone (Mag-Al Plus Susp Liq) 30 ml Q6H PRN PO INDIGESTION; Start 10/21/16 at 13:15 Zolpidem Tartrate (Ambien) 5 mg HS PRN PO SLEEP; Start 10/21/16 at 13:15 Miscellaneous Information ALL NURSING DEPARTME... UNSCH PRN XX SEE LABEL COMMENTS; Start 10/21/16 at 13:30; Stop 10/22/16 at 13:29; Status DC Warfarin Sodium (Coumadin) Follow Sliding Scale... ONCE ONCE PO ; Start at 13:00; Stop 10/22/16 at 13:01; Status DC Warfarin Sodium (Coumadin) Follow Sliding Scale... DAILY@1600 PO ; Start at 16:00 Magnesium Hydroxide (Milk Of Magnesia Liq) 30 ml DAILY PRN PO CONSTIPATION Last administered on 10/23/16 18:06; Start 10/23/16 at 12:00 Bisacodyl (Dulcolax Supp) 10 mg DAILY PRN RECTAL CONSTIPATION Last administered on 3/26/17at 04:50; Start 10/23/16 at 12:00 A/P Assessment and Plan A/P Severe osteoarthritis of the right hip -s/p right total hip arthroplasty on 10/21/16. -Being managed by orthopedics. Anemia- post-op; stable H/H- patient is asymptomatic and after our discussion about transfusion she said she'd rather wait at this time. Hypertension/Aortic stenosis/chronic kidney disease stage III -ff up with Dr. Chaney as OP for - Plavix on hold while on coumadin -continue on her HCTZ 12.5 mg po daily DVT prophylaxis -On Coumadin per primary team. Sakina Bentley MD Oct 24, 2016 11:03
[2016-10-24] MEDS ORDERED: NORC5TAB PO (11:32)
[2016-10-24] MEDS ORDERED: COUM1TAB PO (11:33)
[2016-10-24 12:19] VITALS: O2SAT 97
--- NOTE | 2016-10-25 09:51 | MP ---
cc: YAN HUFFMAN M.D., MINA M.D. DATE OF SURGERY: 10/21/2016 PREOPERATIVE DIAGNOSIS 1. Right hip severe osteoarthritis. POSTOPERATIVE DIAGNOSIS 1. Right hip severe osteoarthritis. PROCEDURE Right total hip arthroplasty. SURGEON Yan Huffman MD PASTRY COOK ORIANA Van PROCEDURE Right total hip arthroplasty. SPECIMEN None. ESTIMATED BLOOD LOSS 100 cc. COMPLICATIONS None. ANESTHESIA General. DRAIN None. CONDITION Stable. PLAN OF ACTIVITY Per orders. PROCEDURE My radiology practitioner assistant ORIANA Van was present for the entire surgical case. She was medically necessary for the entire case because of the complexity of the case and to facilitate the performance of the procedure. The LABORER HEADING at the back table was not a skill set for this case to manipulate the instruments, e.g., the soft tissue retractors, trial implants and permanent implants. The patient was brought to the operating room and had satisfactory general endotracheal anesthesia by the Department of Anesthesia. The patient was carefully transferred to a lateral decubitus position. All pressure points were well-padded. The right hip and lower extremity was prepped and draped in the usual sterile manner. The patient had a small posterolateral hip incision. All bleeders were then coagulated. Dissection continued through skin to subcutaneous tissue. The fascia jessika and gluteus darrel was incised in line with the skin incision. The short external rotators were removed as a group. The hip abductors were preserved and the hip was dislocated posteriorly. Capsulotomy was performed and the hip was dislocated posteriorly. The patient was found to have severe osteoarthritis involving the hip joint. Osteotomy was made on the neck at the appropriate level. Exposure of the acetabulum was made. The remaining portion of the acetabular labrum and capsule was removed. Using hemispherical reamers the hip was sequentially reamed to 48 mm in outer diameter. Trial reduction Press-Fit manner with a 48 mm Bicentric cup was found to be stable and satisfactory in a Press-Fit type manner. Attention was now brought to the femur. Using the Biomet taper lock system sequentially broached to a number 10 broach. Standard offset stem with a zero neck was assembled onto the trunnion 28 mm ball of femoral head. The hip was reduced. The patient was found to have satisfactory limb lengths, satisfactory stability and satisfactory range of motion. The hip was then dislocated posteriorly and all trial components were removed. The Biomet taper lock system 10 mm stem standard offset was placed in anatomic position approximately 15 degrees anteversion with an excellent "fit and fill". The zero neck 28 mm ball was then assembled onto the trunnion. The hip was again reduced. The patient is found to have satisfactory limb lengths, satisfactory stability and satisfactory range of motion. The wound was irrigated with copious amounts of sterile saline antibiotic solution. The wound itself was dry. The wound was closed in routine manner. The short external rotators were repaired back to the greater trochanter with drill holes with #2 Tycron suture. The fascia jessika and gluteus darrel was repaired using #2 Tycron suture, subcutaneous tissue layer using 0-Vicryl and 2-0 Vicryl, skin was approximated with running subcuticular 2-0 Nylon. Sterile dressing was applied. The patient tolerated the procedure well and arrived in the recovery room in stable and satisfactory condition. MD PALMER Diego/PINKY /1:04 PM /9:31 AM
--- NOTE | 2016-11-02 11:47 | HHI.DS ---
Discharge Summary Admission Date Oct 21, 2016 at 08:31 Discharge Date: Oct 24, 2016 Admitting Diagnosis Right hip osteoarthritis Diagnosis: (1) Osteoarthritis of right hip Diagnosis: Principal Procedures Right total hip arthroplasty Brief History This is a 81 year old female patient who presents with the following history. Patient has long history of left greater than right hip pain. She underwent left total hip arthroplasty July of 2016 and has done very well with her hip. With her left hip feeling so good, she has had increased right hip pain. She is on plavix and is unable to take NSAIDs. She does use a cane/walker for assistive ambulation. Imaging x-rays show severe osteoarthritis involving left hip, joint space narrowing, status post right total hip arthroplasty PE at Discharge right hip dressing dry and intact no calf tenderness +NVI Hospital Course 81 year old female presents with the following history. Patient underwent right total hip arthroplasty on the date of admission. She was treated with low dose coumadin night before procedure and will be continued to be treated with low dose coumadin for four weeks post-operatively and then she will be able to resume her plavix that she was on before her procedure. She was started with full weight bearing ambulation on pod #1. She was also treated with knee high TEDS and sequentials during the stay. Medical was consulted and followed patient during stay. She was discharged to a SNF for further therapy and nursing care on pod # 3 in stable condition. Pt Condition on Discharge: Stable Discharge Disposition: Discharge to SNF Discharge Instructions Diet Instructions: Coumadin (Warfarin) Diet Activities You Can Perform: Weight Bearing as Akua Wyman Nov 02, 2016 11:47
== END 2016-10-24 13:03 | DRG 470 ==
LOC: HSDI 10-21 08:31 → N06B 10-21 15:15
PROVIDERS: ADMIT Orthopaedic Surgery Orthopaedic Surgery of the Spine; ATTEND Orthopaedic Surgery Orthopaedic Surgery of the Spine
PROC: 0SR903A Replacement of Right Hip Joint with Ceramic Synthetic Substitute, Uncemented, Open Approach (ICD-10-PCS; principal; 2016-10-21 11:28)
DX: M16.11 Unilateral primary osteoarthritis, right hip (principal); D64.9 Anemia, unspecified; N18.3 Chronic kidney disease, stage 3 (moderate); I12.9 Hypertensive chronic kidney disease with stage 1 through stage 4 chronic kidney disease, or unspecified chronic kidney disease; I35.0 Nonrheumatic aortic (valve) stenosis; Z96.652 Presence of left artificial knee joint; Z79.01 Long term (current) use of anticoagulants
CPT/HCPCS: 73501; 85014; 85018; 85027; 85610; 86850; 86900; 86901; 86920; 94150; C1776; J0690; J1580; J2250; J2405; J2710; J3010; J3370; J7050; J7120; L1830

== ENCOUNTER 2018-06-27 18:07 | Observation (INO) ==
[2018-06-27 18:25] VITALS: TEMP 98.9
[2018-06-27] MEDS ORDERED: Acetaminophen 325 MG Tablet PO ONE (19:01)
[2018-06-27] MEDS ORDERED: Diphtheria/Tetanus/Pertussis Vaccine Inj 0.5 ML Syringe IM ONE (19:21)
[2018-06-27] MEDS ORDERED: ceFAZolin 1 GM Premix Inj 1 GM/50 ML FROZ.PIGGY IV.SIG ONE ×2 (19:27→20:00)
[2018-06-27 19:36] LABS: Baso # (Auto) 0.1 th/mm3 (0.0-0.2); Baso % (Auto) 0.7 % (0.0-2.0); Eos # (Auto) 0.1 th/mm3 (0.0-0.4); Eos % (Auto) 0.5 % (0.0-4.0); Hematocrit 35.4 % (35.0-46.0); Hemoglobin 12.5 gm/dL (11.6-15.3); Lymph # (Auto) 2.2 th/mm3 (1.0-4.8); Lymph % (Auto) 20.2 % (9.0-44.0); Mean Corpuscular HGB Conc 35.2 % (32.0-36.0); Mean Corpuscular Hemoglobin 33.8 pg (27.0-34.0); Mean Corpuscular Volume 95.9 fL (80.0-100.0); Mean Platelet Volume 7.9 fL (7.0-11.0); Mono # (Auto) 0.9 th/mm3 (0.0-0.9); Mono % (Auto) 8.3 % (0.0-8.0); Neut # (Auto) 7.6 th/mm3 (1.8-7.7); Neut % (Auto) 70.3 % (16.0-70.0); Platelet Count 298 th/mm3 (150-450); Red Blood Count 3.69 mil/mm3 (4.00-5.30); Red Cell Distribution Width 13.5 % (11.6-17.2); White Blood Count 10.8 th/mm3 (4.0-11.0)
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
[2018-06-27 19:47] LABS: Activated Partial Thrombo Time 26.4 sec (23.4-31.7); INR 1.1 Ratio
[2018-06-27 19:56] LABS: Calcium 9.4 mg/dL (8.5-10.1); Carbon Dioxide 29.8 meq/L (21.0-32.0); Potassium 3.7 meq/L (3.5-5.1)
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
[2018-06-28] MEDS ORDERED: Acetaminophen 325 MG Tablet PO PRN (06:00)
[2018-06-28 08:48] VITALS: BP 137/58; RESP 18; O2SAT 98
[2018-06-28] MEDS ORDERED: Carvedilol 12.5 MG Tablet PO SCH (09:00)
--- NOTE | 2018-06-28 09:43 | ECHRPT ---
Indication: CONCLUSIONS The left ventricular systolic function is hyperdynamic with an estimated ejection fraction in the ra nge of 65- 70%. Normal left ventricular size. Wall thickness is normal. No regional wall motion abnormalities are present. The left atrial size is [id number] dilated. Mild thickening of the mitral valve leaflets. Calcification of both mitral valve leaflets. Trace mitral valve regurgitation. Mitral annular calcification is present. Moderate mitral valve stenosis. Mitral valve mean gradient is 8 mmHg. The aortic valve is not well visualized. Status-post aortic valve balloon valvuloplasty. Dimensionless index 0.38 Aortic valve area is 0.83 cm. Aortic valve mean gradient is 22 mmHg. Moderate aortic valve stenosis on limited imaging (visually appears to be severe with heavy calcific ation) There is trace tricuspid valve regurgitation. The estimated pulmonary arterial pressure is 43.4 mmHg. Trivial pulmonary valve regurgitation. BP: / HR: Rhythm: Sinus MEASUREMENTS (Male / Female) Normal Values Technical Quality:Fair 2D ECHO LV Diastolic Diameter PLAX 4.6 cm 4.2 - 5.9 / 3.9 - 5.3 cm LV Systolic Diameter PLAX 2.8 cm IVS Diastolic Thickness 1.1 cm 0.6 - 1.0 / 0.6 - 0.9 cm LVPW Diastolic Thickness 1.1 cm 0.6 - 1.0 / 0.6 - 0.9 cm LV Relative Wall Thickness 0.5 LVOT Diameter 1.6 cm LA Systolic Diameter LX 3.9 cm 3.0 - 4.0 / 2.7 - 3.8 cm M-MODE Aortic Root Diameter MM 1.4 cm LA Systolic Diameter MM 3.9 cm LA Ao Ratio MM 2.8 AV Cusp Separation MM 1.3 cm DOPPLER AV Peak Velocity 342.0 cm/s AV Peak Gradient 46.8 mmHg AV Mean Gradient 22.0 mmHg AV Velocity Time Integral 64.3 cm LVOT Peak Velocity 130.5 cm/s LVOT Peak Gradient 6.8 mmHg LVOT Velocity Time Integral 26.6 cm AV Area Cont Eq vti 0.8 cm AV Area Cont Eq pk 0.8 cm MV Peak Velocity 236.0 cm/s MV Peak Gradient 22.3 mmHg MV Mean Velocity 133.0 cm/s MV Mean Gradient 8.0 mmHg MV Area PHT 1.9 cm Mitral E Point Velocity 136.0 cm/s Mitral A Point Velocity 203.0 cm/s Mitral E to A Ratio 0.7 LV E' Lateral Velocity 4.1 cm/s Mitral E to LV E' Lateral Ratio 33.3 LV E' Septal Velocity 4.5 cm/s Mitral E to LV E' Septal Ratio 30.4 TR Peak Velocity 289.0 cm/s TR Peak Gradient 33.4 mmHg Right Atrial Pressure 10.0 mmHg Pulmonary Artery Systolic Pressu 43.4 mmHg Right Ventricular Systolic Press 43.4 mmHg PV Peak Velocity 183.0 cm/s PV Peak Gradient 13.4 mmHg FINDINGS LEFT VENTRICLE The left ventricular systolic function is hyperdynamic with an estimated ejection fraction in the ra nge of 65- 70%. Normal left ventricular size. Wall thickness is normal. No regional wall motion abnormalities are present. RIGHT VENTRICLE Normal right ventricular size and systolic function. LEFT ATRIUM The left atrial size is [id number] dilated. RIGHT ATRIUM The right atrial size is normal. ATRIAL SEPTUM Normal atrial septal thickness without atrial level shunting by limited color doppler interrogation. AORTA The aortic root and proximal ascending aorta are normal in size on limited imaging. MITRAL VALVE Mild thickening of the mitral valve leaflets. Calcification of both mitral valve leaflets. Trace mitral valve regurgitation. Mitral annular calcification is present. Moderate mitral valve stenosis. Mitral valve mean gradient is 8 mmHg. AORTIC VALVE The aortic valve is not well visualized. Status-post aortic valve balloon valvuloplasty. Dimensionless index 0.38 Aortic valve area is 0.83 cm. Aortic valve mean gradient is 22 mmHg. Moderate aortic valve stenosis on limited imaging (visually appears to be severe with heavy calcific ation) TRICUSPID VALVE Structurally normal tricuspid valve. There is trace tricuspid valve regurgitation. The estimated pulmonary arterial pressure is 43.4 mmHg. PULMONARY VALVE Trivial pulmonary valve regurgitation. VESSELS The inferior vena cava is normal in size. PERICARDIUM No pericardial effusion. Esteban Isabel MD, FACC (Electronically Signed) Final Date:28 June 2018 09:42
--- NOTE | 2018-06-28 10:08 | ECG ---
Date Performed: 06/27/2018 Time Performed: 21:57:20 PTAGE: 83 years EKG: Sinus rhythm POSSIBLE LEFT ATRIAL ENLARGEMENT MARKED LEFT AXIS DEVIATION LEFT BUNDLE BRANCH BLOCK ABNORMAL ECG PREVIOUS TRACING : 04/09/2016 10.18 DOCTOR: Esteban Isabel Interpretating Date/Time 06/28/2018 10:07:25
[2018-06-28 10:36] VITALS: PULSE 83
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
== END 2018-06-28 13:46 | disposition home or self-care (01) ==
LOC: NEPC 18:07 → NEDA 18:07 → NEDH 06-28 04:13 → NEPFCDU 06-28 12:22
PROVIDERS: ADMIT Surgery; ATTEND Surgery
DX: K42.9 Umbilical hernia without obstruction or gangrene; Z23 Encounter for immunization; Z87.891 Personal history of nicotine dependence; S82.61XA Displaced fracture of lateral malleolus of right fibula, initial encounter for closed fracture; V43.52XA Car driver injured in collision with other type car in traffic accident, initial encounter; H54.7 Unspecified visual loss; I31.3 Pericardial effusion (noninflammatory); K57.30 Diverticulosis of large intestine without perforation or abscess without bleeding; I44.7 Left bundle-branch block, unspecified; Z79.02 Long term (current) use of antithrombotics/antiplatelets; S60.222A Contusion of left hand, initial encounter; Z79.82 Long term (current) use of aspirin; M54.6 Pain in thoracic spine; R07.89 Other chest pain; M47.892 Other spondylosis, cervical region; S80.01XA Contusion of right knee, initial encounter; S20.211A Contusion of right front wall of thorax, initial encounter; M47.894 Other spondylosis, thoracic region; K44.9 Diaphragmatic hernia without obstruction or gangrene; S81.012A Laceration without foreign body, left knee, initial encounter; S30.1XXA Contusion of abdominal wall, initial encounter